=== PATIENT | male | born 1955 | race Caucasian/White ===

== ENCOUNTER → 2021-08-04 13:19 | Outpatient (CLI) | payer OTHER, SELFPAY ==
[2021-08-04 14:31] LABS: COVID19 -Nasal RAPID Negative (Negative)
== END ==
PROVIDERS: PCP Nurse Practitioner Family; Visit Provider Family Medicine Sleep Medicine
DX: Z20.822 Contact with and (suspected) exposure to COVID-19 (principal)
CPT/HCPCS: 87635; C9803

== ENCOUNTER 2021-08-07 09:41 | Day surgery (SDC) | payer OTHER, SELFPAY ==
--- NOTE | 2021-08-07 | PATH_ITS ---
[facility] Accession Number: [id number] . 01 Material submitted: . PART A: colon - ASCENDING COLON POLYP PART B: rectosigmoid junction - RECTO-SIGMOID POLYP . 02 Diagnosis: A. Ascending Colon Polyp: Portions of sessile serrated adenoma x4. . B. Rectosigmoid Polyp: Tubular adenoma. MRV 08/09/2021 0847 Local . 02 Electronically signed: . Justine Palomo MD, Pathologist NPI- [id number] . 01 Gross description: . Part A: ASCENDING COLON POLYP: Received in formalin are 4 fragment(s) of dunn, soft tissue measuring 1.1 x 0.6 x 0.1 cm to 0.5 x 0.3 x 0.1 cm submitted entirely in 1 cassette(s) Part B: RECTO-SIGMOID POLYP: Received in formalin is 1 fragment(s) of dunn, soft tissue measuring 0.3 x 0.2 x 0.1 cm submitted entirely in 1 cassette(s) /QBJ 08/08/2021 0930 Local . 02 Pathologist provided ICD-10: K63.5, Z12.11 . 02 CPT . 822479, 993271 Specimen Comment: A courtesy copy of this report has been sent to Pathology Performed at: 01 [facility] [address] [facility] [place] [facility]– [place], [place], [place] [id number] MD Donald Dudley MD Phone: [phone] Performed at: 02 [facility] [address] [place], [place] [id number] MD Galina Hartman MD Phone: [phone]
[2021-08-07 10:07] VITALS: BP 138/86; PULSE 84; RESP 16; TEMP 37.2; O2SAT 93; BMI 25.8
[2021-08-07] MEDS: SODIUM CHLORIDE 0.9% 1,000 ML 150 ML IV (10:17)
--- NOTE | 2021-08-07 10:37 | P.HP_ITS ---
History of Present Illness History of Present Illness Date Patient Seen: 08/07/21 Time Patient Seen: 10:38 Chief complaint: SDC Narrative: Indicated for colon cancer screening. Patient History Family & Social History Social History: household members spouse Tobacco & Substance use: Tobacco type cigarettes Smoking Status Former smoker alcohol intake former alcohol intake frequency other Substance Use Type does not use Meds Home Medications and Allergies Home Medications Medication Instructions Recorded Confirmed Type albuterol sulfate 90 mcg/actuation 1 puff INH PRN PRN #0 12/26/12 08/07/21 History aerosol inhaler (Ventolin HFA) simvastatin 20 mg tablet 20 mg PO HS #0 tab 12/26/12 08/07/21 History ibuprofen 800 mg tablet 800 mg PO BID 08/07/21 08/07/21 History Allergies Allergy/AdvReac Type Severity Reaction Status Date / Time From VICODIN AdvReac Unknown NAUSEA & Uncoded 07/10/17 12:26 VOMITTING Review of Systems Review of Systems ROS: Yes All systems reviewed with the patient and are negative except as ot herwise documented Exam Vital Signs (past 8 hours): - 08/07/21 10:07 Temperature 99 F Pulse Rate 84 Respiratory Rate 16 Blood Pressure 138/86 Pulse Oximetry 93 Oxygen Delivery Method Room Air Const General: cooperative and comfortable Orientation: alert HENMT Head: normocephalic Ears: external ears normal Nose: external nose normal Face and sinus: normal facial exam Mouth: oral mucosae normal Eyes General: appearance normal, both eyes and all related structures Neck Neck: normal visual inspection Chest Chest: normal inspection of the chest Resp Effort & Inspection: normal respiratory effort Cardio Rate: regular rate GI Inspection: normal to inspection Skin General: no rashes or lesions noted and No jaundice Neuro General: patient alert and moves all extremities Cognition: normal cognition Speech: speech normal Extrem General: no pedal edema Psych Appearance: grossly normal Assessment & Plan Assessment & Plan narrative: 65-year-old male indicated for colon cancer screening. Colonoscopy is pursued today. Time Spent With Patient Critical Care time: I spent a total of [] minutes of critical care time on this patient's care today; this time is exclusive of procedural time.
--- NOTE | 2021-08-07 10:39 | PM.PREOP ---
Pre-operative Note COVID-19 COVID-19 status: Negative Result date/Date tested (Pos, Neg/Pending): 08/04/21 Criteria for continued procedure: Possibility delay results in more complex future surgery or treatment Interval Note History & Physical reviewed/Exam performed by Physician: Yes Changes to H&P: No ASA Class (for procedural sedation): II
--- NOTE | 2021-08-07 11:19 | SUR.OPER ---
GLASSES TO PACU WITH PATIENT IN LABELED BAG
--- NOTE | 2021-08-07 11:53 | PM.OP.COLON ---
Operative Date/Time/Diagnoses Date of procedure: 08/07/21 Time of procedure: 11:53 Pre-op diagnosis: Colon cancer screening Post-op diagnosis: same Procedure & Clinicians Study performed: Colonoscopy with hot and cold snare polypectomy Same procedure as scheduled: Yes Indications: Colon cancer screening Surgeon: Luis Pryor Procedure Notes SCOAP/Timeout: Done Procedure in detail: After the risks and benefits were explained, written and verbal informed consent was obtained. The patient was brought into the procedure room and placed into the left lateral decubitus position. Please see nurse pipe joints supervisor notes for sedation details. Digital rectal examination was accomplished. The scope was introduced into the patient and advanced under direct visualization to the cecum as identified by the appendiceal orifice and ileocecal valve. The scope was slowly withdrawn to carefully examine the mucosa for any defects or lesions. Comprehensive imaging was accomplished throughout the rectum including the dentate line. The colon was decompressed, the scope was then removed from the patient who tolerated the procedure well. Bowel prep adequate Adult colonoscope Scope withdrawal time: 24 minutes Sedation minutes: 30 Complications: none Impression: There was some diverticulosis in the sigmoid. There was a small polyp in the rectosigmoid removed with cold snare. In the ascending colon approximately 10 cm from the ileocecal valve on the lateral wall there was a sessile polyp on the apex of a fold that measured approximately 12 mm in greatest dimension. We know Judy deployed the 10 mm snare but quickly realized this was a little too small and swapped out for the 24 mm. Even with the larger snare based on its location on the apex of this fold we were required to take this in piecemeal fashion. Had the end of our efforts it appeared as though all of the polyp had successfully been resected. On direct views in the anal rectum, patient had evidence of large engorged nonbleeding hemorrhoids grade 2. Endoscopic diagnosis 1. Diverticulosis 2. Hemorrhoids grade 2 3. Colon polyps Post-procedure Plan for aftercare: 1. Await histopathology to determine optimal surveillance interval. 2. If this ascending colon polyp is confirmed adenomatous, because it required piecemeal resection and early surveillance at around 6 months might be most appropriate. Disposition: PACU
[2021-08-07 11:56] VITALS: BP 114/79; PULSE 84; RESP 16; TEMP 36.9; O2SAT 96
[2021-08-07 12:01] VITALS: BP 125/88; PULSE 73; RESP 18; O2SAT 98
[2021-08-07 12:06] VITALS: BP 133/89; PULSE 71; RESP 21; O2SAT 96
[2021-08-07 12:13] VITALS: BP 140/89; PULSE 62; RESP 19; O2SAT 97
== END 2021-08-07 12:28 | disposition home or self-care (01) ==
PROVIDERS: PCP Physician Assistant; Referring Provider Internal Medicine Gastroenterology; Visit Provider Internal Medicine Gastroenterology
PROC: 0DJD8ZZ Inspection of Lower Intestinal Tract, Via Natural or Artificial Opening Endoscopic (ICD-10-PCS; CPT 45378; principal; 2021-08-07 11:00)
DX: Z12.11 Encounter for screening for malignant neoplasm of colon (principal); K57.30 Diverticulosis of large intestine without perforation or abscess without bleeding; K64.1 Second degree hemorrhoids; D12.2 Benign neoplasm of ascending colon; D12.7 Benign neoplasm of rectosigmoid junction
CPT/HCPCS: 45385; J2704

== ENCOUNTER → 2022-02-27 11:42 | Outpatient (CLI) | payer OTHER, SELFPAY ==
[2022-02-27 12:48] LABS: COVID19 -Nasal RAPID Negative (Negative)
== END ==
PROVIDERS: PCP Physician Assistant; Visit Provider Surgery
DX: Z01.812 Encounter for preprocedural laboratory examination (principal); Z20.822 Contact with and (suspected) exposure to COVID-19
CPT/HCPCS: 87635; C9803

== ENCOUNTER 2022-02-28 08:04 | Day surgery (SDC) | payer OTHER, SELFPAY ==
[2022-02-28] VITALS (8 sets, daily range): BP systolic 110–150; BP diastolic 77–92; PULSE 74–83; RESP 12–20; TEMP 36.4–36.7; O2SAT 96–98; BMI 24.8
[2022-02-28] MEDS: LACTATED RINGERS 1,000 ML 100 ML IV (08:50)
--- NOTE | 2022-02-28 08:58 | PM.HP.1 ---
History of Present Illness History of Present Illness Date Patient Seen: 02/28/22 Chief complaint: SDC Narrative: History of adenomatous colon polyp in the right colon removed in piecemeal fashion, need follow-up to ensure complete removal Patient History Family & Social History Social History: household members spouse Tobacco & Substance use: Tobacco type cigarettes Smoking Status Former smoker alcohol intake former alcohol intake frequency other Substance Use Type does not use Meds Home Medications and Allergies Home Medications Medication Instructions Recorded Confirmed Type albuterol sulfate 90 mcg/actuation 1 puff INH PRN PRN cholesterol ##0 12/26/12 02/28/22 History aerosol inhaler (Ventolin HFA) simvastatin 20 mg tablet 20 mg PO HS #0 tabs 12/26/12 02/28/22 History ibuprofen 800 mg tablet 800 mg PO BID 08/07/21 02/28/22 History Allergies Allergy/AdvReac Type Severity Reaction Status Date / Time From VICODIN AdvReac Unknown NAUSEA & Uncoded 02/28/22 08:34 VOMITTING Exam Vital Signs (past 8 hours): - 02/28/22 08:37 Temperature 97.7 F Pulse Rate 78 Respiratory Rate 16 Blood Pressure 150/80 H Pulse Oximetry 97 Oxygen Delivery Method Room Air Oxygen Delivery Method Room Air Narrative Exam Narrative: Oropharynx free of lesions Chest clear to auscultation percussion Cardiac exam reveals no S3 or murmur Assessment & Plan Assessment & Plan narrative: History of piecemeal removal of moderate-sized ascending colon polyp need follow-up to ensure complete removal. Risks, benefits, alternatives have been explained. Time Spent With Patient Critical Care time: I spent a total of [] minutes of critical care time on this patient's care today; this time is exclusive of procedural time.
--- NOTE | 2022-02-28 08:59 | PM.OP.COLON ---
Operative Date/Time/Diagnoses Date of procedure: 02/28/22 Pre-op diagnosis: See indication and findings Procedure & Clinicians Study performed: Colonoscopy Indications: Personal and family history of colon polyps and family history of colon cancer with recent colonoscopy showing polyp that was removed in a piecemeal fashion in the ascending colon Surgeon: Jazmyn Dang Procedure Notes Procedure in detail: After informed consent was obtained the patient was placed in left lateral decubitus position. The video colonoscope was introduced the rectum and slowly advanced cecum. Preparation was good. On slow withdrawal mucosa was carefully examined. The scope was removed. The patient tolerated procedure well. Blood loss none Complications none Sedation mac Findings 1. Normal colonoscopy to cecum with no residual polyp in the ascending colon. 2. Moderate to severe internal hemorrhoids 3. Scattered sigmoid diverticulosis Follow-up colonoscopy should be in 5 years.
== END 2022-02-28 10:11 | disposition home or self-care (01) ==
PROVIDERS: PCP Physician Assistant; Referring Provider Internal Medicine Gastroenterology; Visit Provider Internal Medicine Gastroenterology
PROC: 0DJD8ZZ Inspection of Lower Intestinal Tract, Via Natural or Artificial Opening Endoscopic (ICD-10-PCS; CPT 45378; principal; 2022-02-28 09:30)
DX: Z09 Encounter for follow-up examination after completed treatment for conditions other than malignant neoplasm (principal); Z86.010 Personal history of colon polyps; K64.8 Other hemorrhoids; K57.30 Diverticulosis of large intestine without perforation or abscess without bleeding
CPT/HCPCS: 45378; J2704